=== PATIENT | male | born 1955 | race Caucasian/White ===

== ENCOUNTER 2017-05-05 00:13 | Day surgery (SDC) | payer OTHER ==
[2017-05-02 08:00] LABS: PLATELET COUNT, AUTOMATED 136 K/uL (150-450)
--- NOTE | 2017-05-02 08:20 | EKG ---
FACILITY: [facility] [place] PATIENT NAME: DAKOTA MACARIO : [id number] MR: [id number] V: [id number] EXAM DATE: ORDERING PHYSICIAN: MEGAN COREY TECHNOLOGIST: Johnie Bernal Reason : PREOP SHOULDER Blood Pressure : / mmHG Vent. Rate : 056 BPM Atrial Rate : 056 BPM P-R Int : 170 ms QRS Dur : 098 ms QT Int : 410 ms P-R-T Axes : 064 057 049 degrees QTc Int : 395 ms Sinus bradycardia Otherwise normal ECG When compared with ECG of 23-JAN-2014 19:25, No significant change was found Confirmed by GARRY RAMIREZ ([id number]) on 05/02/2017 6:36:59 PM Referred By: MEGAN COREY Confirmed By:GARRY RAMIREZ
[2017-05-05] VITALS (11 sets, daily range): BP systolic 118–132; BP diastolic 74–93
[~2017-05-05] VITALS: Ht 177.8 cm; Wt 91.6 kg
[~2017-05-05 00:13] MED LIST: ACET500T68 PO; ALBU8.5H IH; ALFU10TA9 PO; ASCO-182 PO; ASCO500C9 PO; ASPI81TA94 PO; CALC-852 PO; CEP500 PO; CHOL10005 PO; DOCU-416 PO; FINA5TAB67 PO; FISH1CAP15 PO; FLU60SYR30 IM ONLY; FOSI10TA46 PO; FOSI1TAB PO; HYDR-317 PO; HYDR12.558 PO; IBUP-56 PO; KET10 PO; LISI-351 PO; LOR5/325 PO; LORA-788 PO; MONOPRIL; MULT-1335 PO; MULT-772 PO; NAPOD OD; OMEG-11 PO; OXYB15TA17 PO; PHEN200T32 PO; PRAV20TA65 PO; SER50 PO; SIM10 PO; SIMVASTATIN; ZINC50TA2 PO; [UNRECOGNIZED DRUG - CODE] PO; [UNRECOGNIZED DRUG - CODE] PO
[2017-05-05] MEDS ORDERED: FAMOTIDINE 20 MG TAB PO ONE (13:15)
[2017-05-05] MEDS ORDERED: NORMOSOL R SOLN(*) 1000 ML BAG 1,000 ML IV PRN (13:15)
[2017-05-05] MEDS ORDERED: ceFAZolin(*) 2GM/D5W 50ML 50 ML IVPB ONE (13:15)
[2017-05-05] MEDS ORDERED: MIDAZOLAM 2 MG/2 ML VIAL IVP PRN (13:15)
[2017-05-05] MEDS ORDERED: LIDOCAINE/SOD BICARB 8.4% SYR ID ONE (13:15)
[2017-05-05] MEDS ORDERED: CELECOXIB 200 MG CAP PO ONE (13:15)
[2017-05-05] MEDS ORDERED: ONDANSETRON 4 MG/2 ML VIAL ONE (13:19)
[2017-05-05] MEDS ORDERED: fentaNYL CITR 100 MCG/2 ML AMP ONE (13:19)
[2017-05-05] MEDS ORDERED: PROPOFOL EMUL(*) 10MG/ML 20 ML 20 ML ONE (13:19)
[2017-05-05] MEDS ORDERED: LIDOCAINE MPF 1% 5 ML VIAL ONE (13:19)
[2017-05-05] MEDS ORDERED: DEXAMETHASONE SOD PHOS 10MG/ML ONE (13:19)
[2017-05-05] MEDS ORDERED: EPINEPHrine HCL 1 MG/ML AMP ONE (13:20)
[2017-05-05] MEDS ORDERED: ROPIVACAINE 0.5% 20 ML VIAL ONE (13:20)
[2017-05-05] MEDS ORDERED: NS 0.9% 20 ML SDV 20 ML ONE (13:22)
[2017-05-05] MEDS ORDERED: SUGAMMADEX SOD 200 MG/2 ML SDV ONE (13:51)
[2017-05-05] MEDS ORDERED: NEOMYCIN/POLYMYX/BACITR 30 GM TP ONE (15:32)
[2017-05-05] MEDS ORDERED: BUPIV/EPI 0.25% 1:200,000 50ML INFIL ONE (15:33)
[2017-05-05] MEDS ORDERED: ROPIVACAINE 0.2% 20 ML VIAL ONE (15:33)
[2017-05-05] MEDS ORDERED: KETAMINE HCL 200 MG/20 ML MDV ONE (16:00)
[2017-05-05] MEDS ORDERED: ROCURONIUM BROM 10 MG/ML 5 ML ONE (16:00)
[2017-05-05] MEDS ORDERED: ePHEDrine 25 MG/5 ML DISP.SYR IVP ONE ×2 (16:20→16:38)
[2017-05-05] MEDS ORDERED: LACTATED RINGER 3000 ML BAG IR ONE (18:21)
[2017-05-05] MEDS ORDERED: HYDR-385 PO (18:35)
[2017-05-05] MEDS ORDERED: CEPH500T7 PO (18:36)
--- NOTE | 2017-05-06 17:44 | OPERATIVE REPORT 1 ---
EVENT DATE: May 05, 2017 SURGEON: Inder Haney MD ANESTHESIOLOGIST: Blue To MD ANESTHESIA: General plus scalene block. DEPLOYMENT ENGINEER: Robert Hardy PA-C PREOPERATIVE DIAGNOSIS Left shoulder rotator cuff tear with subacromial impingement and acromioclavicular joint degenerative joint disease with biceps tear. POSTOPERATIVE DIAGNOSIS Left shoulder rotator cuff tear with subacromial impingement and acromioclavicular joint degenerative joint disease with biceps tear with superficial fraying of subscapularis, but no structural tear at that tendon. PROCEDURE PERFORMED Left shoulder arthroscopy with debridement of superior aspect of subscapularis, resection of biceps (biceps tenotomy using arthroscope), labral debridement, arthroscopic rotator cuff repair with subacromial decompression and lateral clavicle excision. ESTIMATED BLOOD LOSS Minimal. INTRAVENOUS FLUIDS 1500 TOURNIQUET TIME None. SPECIMENS None. COMPLICATIONS None. IMPLANTS USED Juggernaut 2.9 mm anchor times two for medial row and Quattro Link 4.5 mm anchor times one lateral row. SUMMARY OF PROCEDURE The patient was brought into the operating room and placed on the OR table in the supine position. He was then given a scalene block under ultrasound guidance by Dr. To. Subsequently, a general anesthetic was undertaken. He was placed in the beach chair position. His left shoulder was prepped and draped in the usual sterile fashion. An Cory shoulder monteiro was used for traction and positioning. Standard arthroscopic assessment was then undertaken beginning with posterior visualization and anterior instrumentation portals. The axillary recess was free of loose bodies. The anteroinferior labrum did have fraying. He had some detachment of the anterosuperior labrum, but it was not pathologic. The biceps was in poor condition with substantial intertendinous damage and material hanging down inside the joint which actually had to be cleared with the shaver before we could even further assess it. It did not look like he had a SLAP tear, but certainly the biceps looked like it would be contributing significantly to his pain. The rotator cuff tear was easily seen from within the joint. I was thinking that perhaps the subscapularis also had a tear, but it was just frayed tissue. After we cleared this material and heated it with a radiofrequency probe, it looked sufficiently normal to leave alone. There had just been some fraying, but no structural detachment. The biceps was resected and allowed to retract after having cleaned it from the debris that could be visualized from within the joint. We then used a spinal needle to triangulate the point of tear on the rotator cuff and placed a switching stick, after which a cannula was placed to allow for use of a shaver and a bur to prepare for the rotator cuff repair. We now went to the subacromial space and effected a subacromial decompression by making an accessory portal there. There was a fairly large spur especially medially which was resected with a bur, and then I also removed the lateral aspect of the clavicle, giving about 7 to 8 mm of space. We then directed our attention to the rotator cuff. From outside in, a spinal needle was placed at the margin of the acromion, and we placed two medial row 2.9 Juggernaut anchors and then shuttled the suture through using a FastPass Scorpion. These were all tied down which lateralized the repair quite nicely, and it looked fairly good. However, it appeared that the footprint anchor would certainly give it additional support, so one footprint anchor using 4.5 mm device was placed laterally. I thought about placing a second, but I was concerned that it would create a fracture through the greater acromion since it was really only a fairly small tear in one tendon. Therefore, we cut the rest of the sutures and left it at that. The shoulder was drained. Arthroscopic portals were closed with nylon. He was awakened and transferred to the recovery area in stable condition. SERVANDO
== END 2017-05-05 19:00 | disposition home or self-care (01) ==
LOC: OR 00:13
PROVIDERS: ATTEND Orthopaedic Surgery Hand Surgery
DX: M75.102 Unspecified rotator cuff tear or rupture of left shoulder, not specified as traumatic (principal); M75.42 Impingement syndrome of left shoulder; M19.012 Primary osteoarthritis, left shoulder; R00.1 Bradycardia, unspecified; I10 Essential (primary) hypertension
CPT/HCPCS: 29824; 29826; 29827; 36415; 85025; 93005; C1713; J0171; J1100; J2001; J2250; J2405; J2704; J3010; J3490; J7050; L3670; 82040; 82247; 82310; 82374; 82435; 82565; 82947; 84075; 84132; 84155; 84295; 84450; 84460; 84520; J0690; J2795

== ENCOUNTER → 2017-07-12 | Outpatient (CLI) | payer OTHER ==
[~2017-07-12] MED LIST changes: +CEPH500T7 PO; +HYDR-385 PO; +PRAV40TA78 PO
[2017-07-12 07:15] LABS: PLATELET COUNT, AUTOMATED 156 K/uL (150-450)
[2017-07-12 07:47] LABS: LDL CHOLESTEROL 88 mg/dl
== END ==
LOC: LAB 06:53
PROVIDERS: ATTEND Internal Medicine
DX: N40.0 Benign prostatic hyperplasia without lower urinary tract symptoms (principal); I10 Essential (primary) hypertension; E78.5 Hyperlipidemia, unspecified; R79.89 Other specified abnormal findings of blood chemistry
CPT/HCPCS: 36415; 81001; 82040; 82247; 82310; 82374; 82435; 82465; 82565; 82947; 83718; 84075; 84132; 84155; 84295; 84443; 84450; 84460; 84478; 84520; 85025

== ENCOUNTER 2017-07-14 11:15 | Outpatient (RCR) | payer OTHER ==
--- NOTE | 2017-05-19 08:36 | PT INITIAL EVALUATION ---
MEDICAL DIAGNOSIS: Left Arthroscopic RTC repair with LCE/SAD and Biceps Release TREATMENT DIAGNOSIS: Left Arthroscopic RTC repair with LCE/SAD and Biceps Release DATE OF ONSET: 05/05/17 SUBJECTIVE: Manuel is a 61 year-old male presenting to physical therapy following recent left shoulder ARTC repair on 2016 with associated LCE/ SAD and biceps tendon release. Pt followed up with MD on 05/17/17 to have his stitches removed and received an order for physical therapy to assist in the healing process. Pt reports that since the surgery he hasn't had any problems and is no longer taking pain medications with pain levels being relatively low at 2/10 at rest. Pt is wearing a sling throughout the day and at night to protect the shoulder while sleeping. REHAB PROBLEM LIST: Increased Pain Decreased ROM Decreased Strength Impaired Transfers Decreased Endurance Decreased Function Decreased ADL's Decreased Mobility PREVIOUS MEDICAL HISTORY: See EMR OCCUPATION: Retired OBJECTIVE: Pt has a L shoulder in sling upon presentation. Pt has minimal bruising surrounding inferior aspect of the shoulder. Posture: Pt has rounded shoulder posture with increased thoracic kyphosis secondary to sling weight with a slightly elevated L shoulder ROM: R shoulder AROM (flexion, abd, ER, IR): 170, 180, 90, 90+. L shoulder PROM (flexion, abd, ER, IR): 85, 108, 35, 90 with painful empty end-feel. Pt has full AROM of B elbows and wrists without pain. Strength: R shoulder MMT: 5/5 in all major motions, L shoulder not tested at this time due to MD restrictions and pain. Palpation: Pt has 5 arthroscopic incisions which are well healing without any signs of redness or warmth. The most anterior incision has moderate soft tissue restrictions, but all others are mobile with minimal to no adhesions. Sensation: UE sensation intact to light touch. ASSESSMENT: Pt shows signs and symptoms consistent with recent L RTC repair. Physical therapy is indicated to address the above listed deficits to improve pt mobility and strength for functional use with ADL's. Short Term Goals In 3 weeks pt will have full PROM of the L shoulder equal to that of the R in all planes of motion for improved functional mobility with ADL's. In 6 weeks pt will have full AROM of the L shoulder equal to that of the R in all planes of motion for improved functional mobility with ADL's. In 6 weeks pt will increase L shoulder strength as tested by MMT to >4/5 in all major muscle groups for improved function with ADL's. In 6 weeks pt will be independent with HEP for continued strength and function of the L UE. Patient's Goals Gain back full ROM and get the back to strengthening and lifting. PLAN: Patient to be seen for Manual Therapy/STM/MET Strengthening/condition Ice/Heat Range of Motion Spinal Stabilization Ultrasound Stretching Iontophoresis Neuromuscular Re-ed Closed Chain Program Electrical Stim Posture/Body mechanics Biofeedback Home Exercise Program Mech./Manual Traction Therapeutic Activities Pelvic Floor 3x/Week for 6 Weeks If you have any questions, comments, or concerns, please contact me at . Thank you, Shellie Love, PT, DPT, CLT CAMILOD
--- NOTE | 2017-06-09 17:52 | PT PLAN OF CARE ---
Physician: Inder Haney MD Patient is being seen: 2-3x/Week Therapist: Shellie Love, PT, DPT, CLT Medical Diagnosis: Left Arthroscopic RTC repair with LCE/SAD and Biceps Release Treatment Diagnosis: Left Arthroscopic RTC repair with LCE/SAD and Biceps Release Date of Onset: 05/05/17 Date of Initial Evaluation: 05/18/17 Date patient was last seen: 06/09/17 Number of treatments: 10 Number of cancellations/No shows: 0 INTERVENTIONS: Manual Therapy/STM/MET Strengthening/condition Ice/Heat Range of Motion Spinal Stabilization Ultrasound Stretching Iontophoresis Neuromuscular Re-ed Closed Chain Program Electrical Stim Posture/Body mechanics Biofeedback Home Exercise Program Mech./Manual Traction Therapeutic Activities Pelvic Floor GOALS: In 3 weeks pt will have full PROM of the L shoulder equal to that of the R in all planes of motion for improved functional mobility with ADL's. MET In 6 weeks pt will have full AROM of the L shoulder equal to that of the R in all planes of motion for improved functional mobility with ADL's. In 6 weeks pt will increase L shoulder strength as tested by MMT to >4/5 in all major muscle groups for improved function with ADL's. In 6 weeks pt will be independent with HEP for continued strength and function of the L UE. PATIENT'S GOAL: Gain back full ROM and get the back to strengthening and lifting. Status of Patient's Goals: 1/4 MET, 3/4 In Progress Patient Compliance: Excellent Prognosis: Good Reasons for continuing therapy: Manuel shows excellent progress with shoulder ROM and scapular strength. At this time pt has reached full mobility with both passive and active assisted ROM and has progressed to full active ROM in the abduction and scaption planes. Pain consistently is minimal if present and pt shows good compliance with HEP. Scapulohumeral rhythm shows good movement and progression towards active motion. Posture: Pt has rounded shoulder posture with increased thoracic kyphosis secondary to sling weight with a slightly elevated L shoulder ROM: R shoulder AROM (flexion, abd, ER, IR): 170, 180, 90, 90+. L shoulder AAROM (flexion, abd, ER, IR): 175, 180, 90, 90. L shoulder AROM (flexion, abd, ER, IR): no flexion secondary to protocol, 180, 90, 90 degrees. Strength: R shoulder MMT: 5/5 in all major motions, L shoulder not tested at this time due to MD restrictions. Palpation: Incisions are well healed with good mobility in all except anterior incision with minimal restrictions. If you have any questions or concerns, please feel free to contact me at . Thank you, Shellie Love, PT, DPT, CLT MTDD
--- NOTE | 2017-07-07 17:12 | PT PLAN OF CARE ---
Physician: Inder Haney MD Patient is being seen: 2-3x/Week Therapist: Shellie Love, PT, DPT, CLT Medical Diagnosis: Left Arthroscopic RTC repair with LCE/SAD and Biceps Release Treatment Diagnosis: Left Arthroscopic RTC repair with LCE/SAD and Biceps Release Date of Onset: 05/05/17 Date of Initial Evaluation: 05/18/17 Date patient was last seen: 07/07/17 Number of treatments: 21 Number of cancellations/No shows: 0 INTERVENTIONS: Manual Therapy/STM/MET Strengthening/condition Ice/Heat Range of Motion Spinal Stabilization Ultrasound Stretching Iontophoresis Neuromuscular Re-ed Closed Chain Program Electrical Stim Posture/Body mechanics Biofeedback Home Exercise Program Mech./Manual Traction Therapeutic Activities Pelvic Floor GOALS: In 3 weeks pt will have full PROM of the L shoulder equal to that of the R in all planes of motion for improved functional mobility with ADL's. MET In 6 weeks pt will have full AROM of the L shoulder equal to that of the R in all planes of motion for improved functional mobility with ADL's. In 6 weeks pt will increase L shoulder strength as tested by MMT to >4/5 in all major muscle groups for improved function with ADL's. In 6 weeks pt will be independent with HEP for continued strength and function of the L UE. PATIENT'S GOAL: Gain back full ROM and get the back to strengthening and lifting. Status of Patient's Goals: 1/4 MET, 3/4 In Progress Patient Compliance: Excellent Prognosis: Good Reasons for continuing therapy: Manuel shows good progression with strength while maintaining ROM. Further strength gains are required for return to full function as well as to increase muscular endurance with ADL's. Posture: Pt has rounded shoulder posture with increased thoracic kyphosis secondary to sling weight with a slightly elevated L shoulder ROM: R shoulder AROM (flexion, abd, ER, IR): 170, 180, 90, 90+. L shoulder AROM (flexion, abd, ER, IR): 175, 180, 90, 80. Strength: R shoulder MMT: 5/5 in all major motions, L shoulder MMT: Flexion and Abd: 3+/5, ER: 3/5, IR: 4/5 Palpation: Incisions are well healed with good mobility in all except anterior incision with minimal restrictions. If you have any questions or concerns, please feel free to contact me at [phone]. Thank you, Shellie Love, PT, DPT, CLT MTDD
[~2017-07-14 11:15] MED LIST changes: -PRAV40TA78 PO
[2017-07-17] MEDS ORDERED: LISI-351 PO (11:00)
[2017-07-17] MEDS ORDERED: PRAV40TA78 PO (11:00)
--- NOTE | 2017-07-20 09:41 | PT PLAN OF CARE ---
Physician: Inder Haney MD Patient is being seen: 2-3x/Week Therapist: Shellie Love, PT, DPT, CLT Medical Diagnosis: Left Arthroscopic RTC repair with LCE/SAD and Biceps Release Treatment Diagnosis: Left Arthroscopic RTC repair with LCE/SAD and Biceps Release Date of Onset: 05/05/17 Date of Initial Evaluation: 05/18/17 Date patient was last seen: 07/14/17 Number of treatments: 24 Number of cancellations/No shows: 0 INTERVENTIONS: Manual Therapy/STM/MET Strengthening/condition Ice/Heat Range of Motion Spinal Stabilization Ultrasound Stretching Iontophoresis Neuromuscular Re-ed Closed Chain Program Electrical Stim Posture/Body mechanics Biofeedback Home Exercise Program Mech./Manual Traction Therapeutic Activities Pelvic Floor GOALS: In 3 weeks pt will have full PROM of the L shoulder equal to that of the R in all planes of motion for improved functional mobility with ADL's. MET In 6 weeks pt will have full AROM of the L shoulder equal to that of the R in all planes of motion for improved functional mobility with ADL's. MET In 6 weeks pt will increase L shoulder strength as tested by MMT to >4/5 in all major muscle groups for improved function with ADL's. MET In 6 weeks pt will be independent with HEP for continued strength and function of the L UE. MET PATIENT'S GOAL: Gain back full ROM and get the back to strengthening and lifting. Status of Patient's Goals: 4/4 MET Patient Compliance: Excellent Prognosis: Good Reasons for discharge from therapy: Manuel is to discharge from physical therapy at this time secondary to MD preference and completion of 4/4 functional goals. It is my recommendation that upon discharge pt continue with HEP and strengthening of the affected shoulder for maintenance of functional mechanics and motion for a high functioning life-style. Upon discharge pt shows minimal deficits remaining in strength between extremities which I am confident pt can work towards independently without risk of injury. ROM: B shoulder AROM (flexion, abd, ER, IR): 170, 180, 90, 90. Strength: R shoulder MMT: 5/5 in all major motions, L shoulder MMT: Flexion and Abd: 4/5, ER: 4/5, IR: 4/5 Palpation: Incisions are well healed with good mobility. If you have any questions or concerns, please feel free to contact me at . Thank you, Shellie Love, PT, DPT, CLT MTDD
== END 2017-07-14 18:00 | disposition home or self-care (01) ==
LOC: PT 11:15
PROVIDERS: ATTEND Orthopaedic Surgery Hand Surgery
DX: Z47.89 Encounter for other orthopedic aftercare (principal)
CPT/HCPCS: 97161

== ENCOUNTER → 2017-08-01 | Outpatient (CLI) | payer OTHER ==
[~2017-08-01] MED LIST changes: +PRAV40TA78 PO
--- NOTE | 2017-08-01 13:05 | RADIOLOGY IMAGING REPORT ---
FACILITY: [facility] - [place] PATIENT NAME: Manuel Espitia : 1955 MR: [id number] V: [id number] EXAM DATE: ORDERING PHYSICIAN: WILLIAM STEARNS TECHNOLOGIST: Location: [facility] [place] Patient: Manuel Espitia : 1955 Visit/Account:[id number] Date of Sevice: 08/01/2017 Abdominal ultrasound Indication: Elevated LFTs, hyperlipidemia Comparison: None Technique: Multiple grayscale, color and Doppler sonographic images were obtained for a complete ultr asound of the abdomen. Findings: The liver is normal in size measuring 15.5 cm. Overall, there is increased echotexture throughout th e hepatic parenchyma. Noted near the gallbladder fossa is an amorphous, hypoechoic area without vasc ular displacement or internal vascular hyperemia measuring roughly 4.3 x 4.1 x 6.6 cm. There is eduardo l hepatopedal portal venous flow. No adjacent ascites. The spleen is normal in size, contour, and echotexture and measures 11 cm in length. Gallbladder wall thickness is 2 mm with no evidence of shadowing stone or sludge within the gallbladd er lumen. Negative sonographic Schultz's sign reported by the technologist. Common duct measures 3 mm in maximum diameter with no evidence of shadowing stone. Imaged portions of the pancreas are unremarkable. Abdominal aorta and IVC are patent and unremarkable. The kidneys are normal in size, contour, and echotexture with the right kidney measuring 10.5 cm x 5 .1 cm x 6.1 cm and the left kidney measuring 11.5 cm x 5.7 cm x 6.4 cm. Incidental note is made o f an anechoic cyst along the lower pole of the left kidney. IMPRESSION: 1. Hepatic steatosis. Additionally, there is an amorphous, hypoechoic area near the gallbladder fos sa measuring 4.3 x 4.1 x 6.6 cm without increased vascularity. In the absence of known risk factor s uch as malignancy this likely represents focal fatty sparing. If further workup is desired MRI would assess. Report Dictated By: Maged Leal DO at 08/01/2017 12:50 PM Report E-Signed By: Maged Leal DO at 08/01/2017 1:02 PM WSN:[email or web address]
== END ==
LOC: US 01:54
PROVIDERS: ATTEND Internal Medicine
DX: K76.0 Fatty (change of) liver, not elsewhere classified (principal); R19.01 Right upper quadrant abdominal swelling, mass and lump
CPT/HCPCS: 76700

== ENCOUNTER → 2018-08-23 | Outpatient (CLI) | payer MEDICARE ==
[~2018-08-23] MED LIST changes: +LISI-353 PO; +PNEU0.5D3 IM
--- NOTE | 2018-08-24 09:39 | EKG ---
FACILITY: [facility] - [place] PATIENT NAME: DAKOTA MACARIO : [id number] MR: [id number] V: [id number] EXAM DATE: ORDERING PHYSICIAN: WILLIAM STEARNS TECHNOLOGIST: WALTER Test Reason : SOB Blood Pressure : / mmHG Vent. Rate : 074 BPM Atrial Rate : 074 BPM P-R Int : 176 ms QRS Dur : 094 ms QT Int : 382 ms P-R-T Axes : 075 057 035 degrees QTc Int : 424 ms Normal sinus rhythm with sinus arrhythmia Normal ECG When compared with ECG of 02-MAY-2017 07:57, No significant change was found Confirmed by WILLIAM STEARNS ([id number]) on 08/27/2018 1:06:33 PM Referred By: WENCESLAO Confirmed By:WILLIAM STEARNS
== END ==
LOC: RESP 10:58
PROVIDERS: ATTEND Internal Medicine
DX: Z02.9 Encounter for administrative examinations, unspecified (principal)

== ENCOUNTER → 2018-08-28 | Outpatient (CLI) | payer MEDICARE ==
--- NOTE | 2018-08-28 13:21 | RADIOLOGY IMAGING REPORT ---
FACILITY: [facility] - [place] PATIENT NAME: Manuel Espitia : 1955 MR: [id number] V: [id number] EXAM DATE: ORDERING PHYSICIAN: WILLIAM STEARNS TECHNOLOGIST: Location: [facility] - [place] Patient: Manuel Espitia : 1955 Visit/Account:[id number] Date of Sevice: 08/28/2018 EXAMINATION: Aorta ultrasound with duplex Doppler evaluation HISTORY: Wellness screening COMPARISON: None. FINDINGS: Suprarenal abdominal aorta: 2.5 x 2.8 cm AP and transverse dimensions Superior infrarenal abdominal aorta: 1.8 x 1.9 cm AP and transverse dimensions Mid infrarenal abdominal aorta: 1.6 x two cm AP and transverse dimensions Inferior infrarenal abdominal aorta: 1.7 x 1.9 cm AP and transverse dimensions Proximal common iliac artery diameter: Left 13 mm; right 12 mm Aorta wall: Mild intimal thickening Aorta and proximal common iliac artery are patent by duplex Doppler ultrasound. IMPRESSION: No evidence of an abdominal aortic aneurysm. Report Dictated By: Alyssa Douglas MD at 08/28/2018 1:17 PM Report E-Signed By: Alyssa Douglas MD at 08/28/2018 1:18 PM WSN:[email or web address]
== END ==
LOC: US 01:11
PROVIDERS: ATTEND Internal Medicine
DX: Z00.00 Encounter for general adult medical examination without abnormal findings (principal)
CPT/HCPCS: 93979

== ENCOUNTER 2018-10-03 00:20 | Day surgery (SDC) | payer MEDICARE ==
[~2018-10-03] VITALS: Ht 180.3 cm; Wt 88.5 kg
[2018-10-03] MEDS ORDERED: PROPOFOL EMUL(*) 10MG/ML 20 ML 20 ML ONE (07:05)
[2018-10-03] MEDS ORDERED: LIDOCAINE/SOD BICARB 8.4% SYR ID ONE (10:45)
[2018-10-03] MEDS ORDERED: NORMOSOL R SOLN(*) 1000 ML BAG 1,000 ML IV PRN (10:45)
[2018-10-03 10:59] VITALS: BP 113/81
[2018-10-03 11:58] VITALS: BP 97/67
--- NOTE | 2018-10-03 12:12 | Short(Outpt) Discharge Summary ---
Discharge Summary Reason for Hosp/Final Diag: (1) FH: colon cancer Hospital Course & Plan: Colonoscopy with polypectomy x7 completed without problems. (2) Personal history of colonic polyps Departure Discharge to: Home, Self Care Discharge Instructions Home Meds Active Scripts Lisinopril/Hydrochlorothiazide (LISINOPRIL-HCTZ 20-12.5 MG TAB) 1 Each Tablet, 0.5 TAB PO QDAY, #90 TAB 3 Refills Prov:WILLIAM STEARNS MD 09/11/18 Pravastatin Sodium (PRAVASTATIN SODIUM) 40 Mg Tablet, 40 MG PO QDAY, #90 TAB 4 Refills Prov:WILLIAM STEARNS MD 08/23/18 Reported Medications Cholecalciferol (Vitamin D3) (VITAMIN D3) 1,000 Unit Tablet, 2000 UNIT PO, TAB 08/23/18 Zinc Amino Acid Chelate (ZINC) 50 Mg Tablet, 50 MG PO DAILY 05/04/17 Albuterol Sulfate 90 Mcg/Act (PROAIR HFA 90 MCG/ACT) 8.5 Gm Hfa.aer.ad, 1-2 PUFF IH 3-4XD PRN for CONGESTION, INHALER 02/22/17 Aspirin (ASPIRIN) 81 Mg Tab.chew, 81 MG PO QDAY, TAB.CHEW TAKE 1 TABLET BY MOUTH EVERY DAY 06/29/14 Ascorbic Acid (VITAMIN C) 500 Mg Capsule.er, 500 MG PO DAILY 06/29/14 Calcium Carbonate/Vitamin D3 (CALCIUM + VITAMIN D TABLET) 1 Each Tablet, 1 EACH PO DAILY 04/01/13 Multivitamin W-Minerals/Lutein (CENTRUM SILVER ULTRA MEN'S TAB) 1 Each Tablet, 1 EACH PO DAILY 04/01/13 Fish Oil/Dha/Epa (FISH OIL 1,200 MG FISH OIL) 1 Each Capsule, 1 EACH PO DAILY, CAPSULE 04/01/13 Diet: Regular Activity: As Tolerated Special Instructions: Your colonoscopy was completed without problems and your prep was excellent (Good Job!!). I removed 7 polyps from your colon and rectum and they were all sent to pathology. My office will call you in the next week or two to let you know what the polyps are and when your next colonoscopy should be (either 3 or 5 years) depending on pathology results. GORDY LANE MD October 03, 2018 12:12
[2018-10-03 12:15] VITALS: BP 103/95
[2018-10-03 12:30] VITALS: BP 114/80
[2018-10-03 12:40] VITALS: BP 110/74
[2018-10-03 12:42] VITALS: BP 113/81
--- NOTE | 2018-10-03 13:11 | NUR ---
1250 SBAR FROM Rashad HOYT, PT DRESSING 1254 IV OUT, PRESSURE DRESSING APPLIED, 250ML UP. D/C INSTRUCTIONS COVERED, ALL QUESTIONS ANSWERED 1258 PT OUT ON FOOT, DECLINES WC WITH , Levar PAINTING RN. ALL BELONGINGS WITH PT. V. STEADY ON FEET. HAS NOT VOIDED WHILE IN [place].
== END 2018-10-03 12:54 | disposition home or self-care (01) ==
LOC: OR 00:20
PROVIDERS: ATTEND Surgery
DX: Z12.11 Encounter for screening for malignant neoplasm of colon (principal); Z80.0 Family history of malignant neoplasm of digestive organs; K63.5 Polyp of colon
CPT/HCPCS: 00811; 45385; 88305; J2704